=== PATIENT | male | born 1945 | race Caucasian/White ===

== ENCOUNTER 2019-12-15 17:31 | Inpatient (IN) | payer MEDICARE, BC ==
[~2019-12-15] VITALS: Ht 185.4 cm; Wt 95.3 kg
--- NOTE | ~2019-12-15 | HEMODYNAMI ---
PATIENT:VARSHA HERNANDEZ MEDICAL RECORD: [id number] : 45 LOCATION:[facility] D.2117 ADMISSION DATE: 12/15/19 Generatedon:12/16/201911:15 Patient name: VARSHA HERNANDEZ Patient #: [id number] SSN: [id number] : 1945 Date of study: 12/16/2019 Page: Of Hemodynamic Procedure Report Patient Data Patient Demographics Procedure consent was obtained First Name: VARSHA Gender: Male Last Name: MARY : 1945 Patient #: [id number] Age: 74 year(s) Race: Unknown SSN: [id number] Additional ID: [id number] Contact details [address]: [address] [place] [address] State: [place] City: [place] Zip code: [address] Past Medical History Allergies: No known allergies Admission Admission Data Admission Date: 12/15/2019 Admission Time: 18:35 Arrival Date: 12/16/2019 Arrival Time: 0:00 Admit Source: Other Insurance Payor: Medicare Room #: D.2117 [facility] #: [id number] Height (in.): 71.65 BSA: 2.16 (m2) Height (cm.): 182 BMI: 28.68 (kg/m2) Weight (lbs.): 209.44 Weight (kg.): 95 Lab Results Lab Result Date: 12/16/2019 Lab Result Time: 0:00 Biochemistry Name Units Result Min Max BUN mg/dl 18 --(---*)-- 7 18 Creatinine mg/dl 1.1 --(--*-)-- 0.6 1.3 CBC Name Units Result Min Max Hemoglobin g/dl 14.6 --(-*--)-- 13.5 17.5 Procedure Procedure Types Cath Procedure Diagnostic Procedure LHC LH w/Coronaries FFR/IVUS FFR Initial Sedation Charges Moderate Sedation up to 30 minutes PCI Procedure Hemochron ACT Test Peripheral Cath Diagnostic Procedure Construction Driller Peripheral Procedures Four Vessel Arteriogram Procedure Description Procedure Date Procedure Date: 12/16/2019 Procedure Start Time: 10:48 Procedure End Time: 11:14 Procedure Staff Name Function Stephon Nails MD Performing Physician Carmella Magdaleno RT Monitor Emily Fountain RN Nurse Silvina Guo RT Scrub Indication NSTEMI Procedure Data Cath Procedure Fluoroscopy Diagnostic fluoroscopy Total fluoroscopy Time: 4.2 time: 4.2 min min Diagnostic fluoroscopy Total fluoroscopy dose: 693 dose: 693 mGy mGy Contrast Material Contrast Material Type Amount (ml) Isovue 300 86 Entry Location Entry Primary Successful Side Size Upsize Upsize Entry Closure Succes sful Closure Location (Fr) 1 (Fr) 2 (Fr) Remarks Device Remarks Femoral Right 5 Fr 6 Fr Exoseal artery Short Estimated blood loss: 10 ml Diagnostic catheters Device Type Used For End Catheter Placement MULTIPACK JL 4.0 5Fr Procedure catheter MULTIPACK 3DRC 5Fr Procedure catheter MULTIPACK Pigtail 5 Fr Ventriculography catheter Procedure Complications No complications Procedure Medications Medication Administration Route Dosage 0.9% NaCl I.V. 100 ml/hr Oxygen etCO2 Nasal cannula 2 l/min Lidocaine 2% added to field 20 Heparin Flush Bag added to field 2 bags (1000units/500ml NS) Versed I.V. 2 mg Fentanyl I.V. 50 mcg Heparin Bolus I.V. 6000 units Hemodynamics Rest BSA: 2.16 (m2) HGB: 14.6 (g/dl) O2 Consumption: Estimated: 248.97 (ml/min) O2 Co nsumption indexed: Estimated:115.26 (ml/min/m) Heart Rate: 70 (bpm) Pressure Samples Time Site Value (mmHg) Purpose Heart Use Rate(bpm) 10:57 LV 141/10,11 Snapshot 65 10:57 AO 136/91(113) Pullback 67 10:57 LV 111/18,16 Pullback 67 Gradients Valve Time Site 1 Site 2 Mean SEP/DFP Peak To Heart Use (mmHg) (sec/min) Peak Rate (mmHg) (bpm) Aortic 10:57 LV AO 0 67 111/18,16 136/91(113) Calculations Valve P-P Mean Valve Index Valve Source Name Gradient Area Flow (cm2) Aortic 0 0 Snapshots Pre Cath Intra NCS Post Cath Vital Signs Time Heart Resp SPO2 etCO2 NIBP (mmHg) Rhythm Pain Sedation Rate (ipm) (%) (mmHg) Status Level (bpm) 10:40:29 68 15 97 26.2 159/92(112) NSR 0 (11) 10(A) , No pain 10:44:47 67 19 98 12 165/83(100) NSR 0 (11) 10(A) , No pain 10:49:07 64 20 96 13.5 168/83(105) NSR 0 (11) 10(A) , No pain 10:53:28 64 12 96 28.5 148/80(121) NSR 0 (11) 10(A) , No pain 10:57:41 59 13 96 27 147/93(113) NSR 0 (11) 10(A) , No pain 11:01:56 65 11 95 22.5 142/91(111) NSR 0 (11) 10(A) , No pain 11:06:11 66 13 95 26.3 150/80(102) NSR 0 (11) 10(A) , No pain 11:11:02 63 12 96 16.5 144/87(106) NSR 0 (11) 10(A) , No pain Medications Time Medication Route Dose Verified Delivered Reason Notes Effectiveness by by 10:32:42 0.9% NaCl I.V. 100 Stephon Emiyl used for ml/hr St Toney Fountain procedure RN 10:32:51 Oxygen etCO2 2 Stephon Emily used for Nasal l/min [facility] Toney Fountain procedure cannula MD HANSEN 10:32:57 Lidocaine 2% added 20ml Stephon Szymanski for local to vial [facility] anesthetic field MD FREEMAN 10:33:00 Heparin Flush added 2 Stephon Stephon used for Bag to bags [facility] procedure (1000units/500ml field MD FREEMAN NS) 10:48:25 Versed I.V. 2 mg Stephon Pavona for sedation St Toney Fountain MD RN 10:48:33 Fentanyl I.V. 50 Stephon Emily for sedation mcg St Toney Fountain MD RN 11:01:27 Heparin Bolus I.V. 6000 Stephon Emily for verif ied units [facility] anticoagulation with Dr. FREEMAN RN [place] Procedure Log Time Note 10:17:08 Arrival Date: 12/16/2019 12:00:00 AM 10:17:26 Admit Source: Other 10:17:29 Insurance Payor : Medicare 10:17:35 Patient Height : 71.65 inches 10:17:39 Patient Weight : 209.44 lbs 10:18:09 Lab Result : BUN 18 mg/dl 10:18:09 Lab Result : Hemoglobin 14.6 g/dl 10:18:09 Lab Result : Creatinine 1.1 mg/dl 10:18:15 Diagnostic Cath Status : Elective 10:18:49 Procedure Status Urgent Heart Cath (IP). 10:18:52 Silvina Guo RT(R) (CV) sent for patient. Start room use. 10:18:53 Time tracking: Regular hours (M-F 7:00 - 5:00) 10:18:59 Plan of Care:Hemodynamics will remain stable., Cardiac rhythm will remain stable., Comfort level will be maintained., Respiratory function will remain adequate., Patient/ family verbilizes understanding of procedure., Procedure tolerated without complication., Recovers from procedure without complications.. 10:19:53 H&P Date Dictated: 01/31/2020 Within 30 days and on chart., H&P Addendum completed by physician on day of procedure. (MUST COMPLETE FOR ALL OUTPATIENTS). 10:19:54 Pre-procedure instructions explained to patient. 10:19:57 Family in patients room. 10:19:59 Patient NPO since Midnight. 10:20:09 Patient allergic to No known allergies 10:20:12 Is the patient allergic to Iodine/contrast media? No. 10:20:13 Was the patient premedicated? Yes 10:20:31 Is patient on blood thinner?No 10:21:20 Indication : NSTEMI 10:25:40 Snore? Yes 10:25:42 Sleep apnea? Yes 10:26:00 Airway obstruction? Yes COPD 10:26:03 Dentures? No ? 10:26:08 Patient pain scale 0/10 ?. 10:26:18 IV patent on arrival in left forearm with 0.9% NaCl at [facility]. 10:26:24 Lab results completed and on chart. 10:26:30 Stress Test: no; N/A ? 10:32:28 Informed consent obtained and on chart 10:32:33 Vital chart was started 10:32:42 0.9% NaCl 100 ml/hr I.V. was administered by Emily Fountain RN; used for procedure; Verbal order read back and verified. 10:32:51 Oxygen 2 l/min etCO2 Nasal cannula was administered by Emily Fountain RN; used for procedure; Verbal order read back and verified. 10:32:57 Lidocaine 2% 20ml vial added to field was administered by Stephon Nails MD; for local anesthetic; Verbal order read back and verified. 10:33:00 Heparin Flush Bag (1000units/500ml NS) 2 bags added to field was administered by Stephon Nails MD; used for procedure; Verbal order read back and verified. 10:41:07 Right groin area was prepped with chlora-prep and draped in sterile fashion 10:41:11 Alarms reviewed by R. N. 10:41:12 Sharps counted by scrub and verified by R.N. 10:41:27 Patient received from Med II to CCL 2 Alert and oriented. Tansferred to table in Supine position. 10:41:28 Warm blankets applied, and tierra hugger turned on for patient comfort. 10:41:29 Correct patient and procedure confirmed by team. 10:41:30 Baseline sample Acquired. 10:41:30 ECG and BP/O2 sat monitors applied to patient. 10:41:33 Full Disclosure recording started 10:41:42 Patient diabetic? No. 10:47:01 Physician arrived 10:47:02 --------ALL STOP TIME OUT------ 10:47:02 Final Timeout: patient, procedure, and site verified with staff and physician. All members of the team are in agreement. 10:47:05 Right groin site verified by team. 10:47:10 Fire Safety Assessment: A--An alcohol-based skin anteseptic being used preoperatively., C--Open oxygen or nitrous oxide is being used., D--An ESU, laser, or fiber-optic light is being used. 10:47:16 Physical assessment completed. ASA score P 2 - A patient with mild systemic disease as per Stephon Naisl MD. 10:47:20 2) 60-89 Mildly reduced kidney function, and other findings (as for stage 1) point to kidney disease. 10:47:27 Maximum allowable contrast dose (3.7 X eGFR X 0.75)191 ml. 10:47:32 Sedation plan: IV Moderate Sedation Medication:Versed, Fentanyl 10:47:38 Use device set Femoral Dx 10:47:41 Procedure started. 10:47:58 ACIST Syringe (94252) opened to sterile field. 10:47:59 Bag Decanter (2001S) opened to sterile field. 10:47:59 Medline Cath Pack ([id number]) opened to sterile field. 10:48:01 ACIST Hand Control (83805) opened to sterile field. 10:48:01 ACIST Manifold (88607) opened to sterile field. 10:48:04 DIAGNOSTIC Multipack 5Fr catheter set (CS0656) opened to sterile field. 10:48:15 SHEATH 5FR [place] (MJX219) opened to sterile field. 10:48:16 EMERALD Guide Wire (539-197) opened to sterile field. 10:48:25 Versed 2 mg I.V. was administered by Emily Fountain RN; for sedation; Verbal order read back and verified. 10:48:33 Fentanyl 50 mcg I.V. was administered by Emily Fountain RN; for sedation; Verbal order read back and verified. 10:48:35 Local anesthetic to right femoral artery with Lidocaine 2% by Stephon Nails MD.INITIAL ACCESS ONLY 10:49:01 A 5 Fr sheath was inserted into the Right Femoral artery 10:49:07 Tegaderm 4 x 4 (1626W) opened to sterile field. 10:49:15 A MULTIPACK JL 4.0 5Fr catheter was advanced over the wire and used for Procedure. 10:49:17 LCA angiography performed. 10:52:25 Catheter removed. 10:52:32 A MULTIPACK 3DRC 5Fr catheter was advanced over the wire and used for Procedure. 10:52:36 RCA angiography performed. 10:54:24 Right carotid angiography performed. 10:54:25 Left carotid angiography performed. 10:56:10 Catheter removed. 10:56:19 A MULTIPACK Pigtail 5 Fr catheter was advanced over the wire and used for Ventriculography. 10:56:44 Zero performed for pressure channel P1 10:57:52 EF : 55 % 10:57:58 Catheter removed. 10:59:12 SHEATH 6FR [place] (QWW748) opened to sterile field. 10:59:24 Proceeding to intervention. 10:59:46 [place] Verrata Plus pressure wire (84610C) opened to sterile field. 10:59:47 INFLATOR Merit BasixCompak (HO0658) opened to sterile field. 11:00:02 Sheath upsized to a 6 Fr Short. 11:00:57 GUIDE 6FR JL 4.0 catheter ([id number]) opened to sterile field. 11:01:12 6 Fr jl$ guide catheter was inserted over the wire 11:01:27 Heparin Bolus 6000 units I.V. was administered by Emily Fountain RN; for anticoagulation; verified with Dr. Peacock Verbal order read back and verified. 11:04:04 Procedure type changed to Cath procedure, Diagnostic procedure, LHC, LHC w/Coronaries, FFR/IVUS, FFR Initial, Sedation Charges, Moderate Sedation up to 30 minutes, PCI procedure, Hemochron ACT Test, Peripheral Cath Diagnostic Procedure, Construction Driller Peripheral Procedures, Four Vessel Arteriogram 11:06:29 FFR/IFR wire advanced. 11:06:32 Wire advanced across lesion. 11:08:26 mCirc lesion measured at 1.00 with IFR 11:09:49 Catheter removed. 11:10:00 Sheath removed intact; hemostasis achieved with Exoseal to the Right Femoral artery. 11:10:03 Procedure ended.(Physican Out) 11:10:16 Fluoroscopy time 04.20 minutes. 11:10:22 Fluoroscopy dose: 693 mGy 11:10:22 Flurop Dose total: 693 11:10:27 Dose Area Product 60451 mGy/cm. 11:10:32 Contrast amount:Isovue 300 86ml. 11:10:35 Maximum allowable dose exceeded? No. 11:10:37 Sharps counted by scrub and verified by R.N. 11:10:44 Insertion/operative site no bleeding no hematoma. 11:10:49 Post-op/insertion site Right Femoral artery dressed using a 4 x 4 and Tegaderm. 11:10:52 Post Procedure Pulses reassessed and unchanged 11:11:11 Post-procedure physical assessment completed. ASA score P 2 - A patient with mild systemic disease as per Stephon Nails MD. 11:11:14 Post procedure rhythm: unchanged. 11:11:17 Estimated blood loss: 10 ml 11:11:19 Post procedure instruction explained to patient.Patient verbalizes understanding. 11:11:25 ACT drawn and resulted at out of range-Low seconds. (normal therapeutic range 180-240 seconds). 11:12:02 Procedure and supply charges have been captured, reviewed, submitted and are correct. 11:13:41 Procedure Complication : No complications 11:13:43 Vital chart was stopped 11:13:55 [facility] Findings: mild to moderate CAD (<70%) 11:14:00 4Vessel Findings: mild to moderate disease (<70%, see procedure notes) 11:14:09 Operative report dictated upon procedure completion. 11:14:11 See physician's report for complete and final results. 11:14:17 Report given to [facility]. 11:14:22 Patient transfered to [facility] with Bed. 11:14:33 Procedure ended. 11:14:33 Full Disclosure recording stopped 11:14:40 End room use (Document Last) 11:15:17 End room use (Document Last) 11:15:34 End room use (Document Last) Device Usage Item Name Manufacture Quantity Catalog Hospital Part Current Minima l Lot# / Number Charge Number Stock Stock Serial# Code ACIST Acist 1 88004 403542 368718 157586 20 Syringe Medical (92449) Systems Inc Bag Microtek 1 2001S 518810 01797 637323 5 Decanter Medical Inc. () Medline Medline 1 [id number] 574196 77152 026354 5 Cath Pack ([id number]) ACIST Hand Acist 1 70650 672661 791342 301149 5 Control Medical (06931) Systems Inc ACIST Acist 1 96262 605987 572619 762219 5 Manifold Medical (62005) Systems Inc DIAGNOSTIC Cardinal 1 GD3599 230546 06271 072835 30 Multipack Health 5Fr catheter set (IH3350) SHEATH 5FR Terumo 1 RYH499 602027 215543 229775 5 [place] (CJG138) EMERALD Cardinal 1 502-455 227955 147568 900081 5 Guide Wire Health (502-455) Tegaderm 4 3M 1 1626W 383423 169794 849689 5 x 4 (1626W) MULTIPACK Cardinal 1 383914 5 JL 4.0 5Fr Health catheter MULTIPACK Cardinal 1 266793 5 3DRC 5Fr Health catheter MULTIPACK Cardinal 1 127498 5 Pigtail 5 Health Fr catheter SHEATH 6FR Terumo 1 VUM676 779936 508535 322483 40 [place] (YAZ722) Newfane Newfane 1 09258D 542318 565515096 440835 5 Verrata Plus pressure wire (02436R) INFLATOR Merit 1 CC7431 179909 731826 382017 15 Merit Medical BasixCompak (PA3621) GUIDE 6FR Medtronic 1 BA7IG05 071430 43942 881661 1 JL 4.0 catheter (GK4GN83) Signature Audit [place] Stage Time Signature Unsigned Intra-Procedure 12/16/2019 Carmella Magdaleno 11:15:17 AM RT(R) Intra-Procedure 12/16/2019 Emily Fountain 11:15:34 AM RN Intra-Procedure 12/16/2019 Stephon Dwyer 11:15:55 AM Toney FREEMAN Signatures Performing Physician : Signature : Stephon Nails MD Date : Time : Monitor : Carmella Magdaleno Signature : RT Date : Time : Nurse : Emily Fountain RN Signature : Date : Time : [facility] [address] [address]
[2019-12-15] MEDS ORDERED: LISINOPRIL10 MG PO (17:36)
[2019-12-15] MEDS ORDERED: OMEPRAZOLE20 M1 PO (17:37)
[2019-12-15] MEDS ORDERED: MOBIC7.5 MG PO (17:37)
[2019-12-15] MEDS ORDERED: WELLBUTRIN SR150 MG PO (17:37)
[2019-12-15 18:19] VITALS: BP 120/66
[2019-12-15 18:44] LABS: BASOPHILS 0.2 % (0-2); EOSINOPHILS 0.2 % (0-7); HEMATOCRIT 45.6 % (42.0-54.0); HEMOGLOBIN 15.6 g/dL (13.5-17.5); IMMATURE GRANULOCYTES 0.4 % (0-5); LYMPHOCYTES 14.8 % (15-50); MCH 31.9 pg (26.0-34.0); MCHC 34.2 g/dL (31.0-37.0); MCV 93.3 fL (80.0-100.0); NEUTROPHILS 78.4 % (40-80); PLATELET COUNT 86 10x3/uL (130-400); RBC 4.89 10x6/uL (4.20-6.10); RDW 11.8 % (11.5-14.5); WBC 11.7 10x3/uL (4.8-10.8)
[2019-12-15 18:51] LABS: APTT 33.5 SECONDS (22.8-39.4); CALC OSMOLALITY 274 mosm/kg (275-300); CALCIUM 8.9 mg/dL (8.5-10.1); CARBON DIOXIDE 25.7 mmol/L (21.0-32.0); CHLORIDE - SERUM 103 mmol/L (98-107); CREATININE - SERUM 1.2 mg/dL (0.6-1.3); GLUCOSE 146 mg/dL (74-106); INR 1.19 (0.85-1.17); POTASSIUM - SERUM 4.4 mmol/L (3.5-5.1); SODIUM 135 mmol/L (136-145); UREA NITROGEN 18 mg/dL (7-18); eGFR NON AFRICAN AMERICAN 63 mL/min (90-120)
[2019-12-15 19:00] LABS: PLATELET ESTIMATE DECREASED
[2019-12-15 19:11] LABS: ALBUMIN 3.4 g/dL (3.4-5.0); ALKALINE PHOSPHATASE 95 U/L (30-120); ALT (SGPT) 33 U/L (10-68); BILIRUBIN - TOTAL 0.74 mg/dL (0.2-1.3); CKMB 4.9 U/L (0.0-3.6); CREATINE KINASE 196 UL (21-232); MAGNESIUM - SERUM 1.9 mg/dL (1.8-2.4); PROTEIN - SERUM 7.5 g/dL (6.4-8.2)
[2019-12-15 19:27] LABS: TROPONIN-I 0.142 ng/mL (0.000-0.060)
[2019-12-15 19:32] LABS: D-DIMER-QUANTITATIVE > 20.00 ug/mLFEU (0.20-0.54)
--- NOTE | 2019-12-15 20:00 | NUR ---
ADMIT TO ROOM 2116 FROM ER. ALERT/ORIENTED. TELEMETRY STARTED . NO DISTRESS. DENIES CHEST PAIN AT THIS TIME. O2 @ 2L/NC WITH NONLABORED RESPIRATIONS. ADMISSION HISTORY AND ASSESSMENT COMPLETED. PLAN OF CARE REVIEWED AND PT TEACHING DONE ON WHAT TO EXPECT. CALL LIGHT IN REACH.
[2019-12-16] VITALS: BP 118/54
--- NOTE | 2019-12-16 02:28 | NUR ---
ADMISSION ASSESSMENT COMPLETED.
[2019-12-16 04:00] VITALS: BP 127/81
[2019-12-16 06:10] LABS: BASOPHILS 0.3 % (0-2); EOSINOPHILS 2.2 % (0-7); HEMATOCRIT 43.3 % (42.0-54.0); HEMOGLOBIN 14.6 g/dL (13.5-17.5); IMMATURE GRANULOCYTES 0.5 % (0-5); LYMPHOCYTES 28.9 % (15-50); MCH 31.8 pg (26.0-34.0); MCHC 33.7 g/dL (31.0-37.0); MCV 94.3 fL (80.0-100.0); MONOCYTES 8.1 % (2-11); PLATELET COUNT 70 10x3/uL (130-400); RBC 4.59 10x6/uL (4.20-6.10)
[2019-12-16 06:49] LABS: ALBUMIN 3.2 g/dL (3.4-5.0); ALKALINE PHOSPHATASE 84 U/L (30-120); ALT (SGPT) 28 U/L (10-68); BILIRUBIN - TOTAL 0.57 mg/dL (0.2-1.3); CALC OSMOLALITY 280 mosm/kg (275-300); CALCIUM 8.8 mg/dL (8.5-10.1); CARBON DIOXIDE 27.5 mmol/L (21.0-32.0); CHLORIDE - SERUM 105 mmol/L (98-107); CREATINE KINASE 149 UL (21-232); CREATININE - SERUM 1.1 mg/dL (0.6-1.3); GLUCOSE 112 mg/dL (74-106); POTASSIUM - SERUM 4.1 mmol/L (3.5-5.1); PROTEIN - SERUM 6.6 g/dL (6.4-8.2); SODIUM 139 mmol/L (136-145); UREA NITROGEN 18 mg/dL (7-18); eGFR NON AFRICAN AMERICAN 69 mL/min (90-120)
[2019-12-16 06:50] LABS: TROPONIN-I 0.081 ng/mL (0.000-0.060)
--- NOTE | 2019-12-16 07:15 | NUR ---
RECEIVED PT IN BED AAOX4 RESP UNLABORED SKIN W/D COLOR WNL DENIES ANY PAIN OR NEEDS AT THIS TIME
[2019-12-16 08:10] VITALS: BP 150/85
[2019-12-16 08:37] LABS: CHOL - HDL RATIO 5.1 ratio (2.3-4.9); LDL-HDL RATIO 3.2 ratio (1.5-3.5)
--- NOTE | 2019-12-16 10:07 | NUR ---
PT REFUSES SCDs AT THIS TIME
--- NOTE | 2019-12-16 10:30 | NUR ---
PT TO SURVEYOR INSTRUMENT ASSISTANT VIA BED
--- NOTE | 2019-12-16 11:40 | NUR ---
RECEIVED PT BACK TO ROOM VIA BED VSS RESP UNALBORED 02 ON 2LPM NC PPPX4 RT GROIN NOTED WITH DRSG C/D/I WILL CONTINUE TO MONITOR
[2019-12-16 12:41] VITALS: Ht 185.4 cm; Wt 95.3 kg
[2019-12-16 17:41] VITALS: BP 132/72
[2019-12-16 21:47] VITALS: BP 135/76
--- NOTE | 2019-12-16 22:13 | NUR ---
1950 INITIAL ROUNDS COMPLETED. PT RESTING IN BED WITH NO DISTRESS. NONLABORED RESPIRATION ON O2 @ 2L/NC. SR PER TELEMETRY. SALINE LOCK TO LFA. DRESSING TO RIGHT GROIN C/D/I. NO BRUISING OR SWELLING NOTED. PT IN GOOD SPIRITS, WITH PLANNED DISCHARGE FOR TOMORROW. 3832 BEDTIME MED GIVEN. PT RESTING. CPOC.
[2019-12-17 00:30] VITALS: BP 143/85
[2019-12-17 04:00] VITALS: BP 132/84
[2019-12-17 05:32] LABS: BASOPHILS 0.2 % (0-2); EOSINOPHILS 2.4 % (0-7); HEMATOCRIT 41.9 % (42.0-54.0); HEMOGLOBIN 14.2 g/dL (13.5-17.5); IMMATURE GRANULOCYTES 0.5 % (0-5); LYMPHOCYTES 20.6 % (15-50); MCH 31.8 pg (26.0-34.0); MCHC 33.9 g/dL (31.0-37.0); MCV 93.7 fL (80.0-100.0); MEAN PLATELET VOLUME 11.5 fL (7.4-10.4); MONOCYTES 9.7 % (2-11); NEUTROPHILS 66.6 % (40-80); RBC 4.47 10x6/uL (4.20-6.10); RDW 11.9 % (11.5-14.5); WBC 9.5 10x3/uL (4.8-10.8)
[2019-12-17 05:42] LABS: PLATELET COUNT 87 10x3/uL (130-400)
[2019-12-17 05:43] LABS: PLATELET ESTIMATE DECREASED
[2019-12-17 05:50] LABS: ANION GAP 12.9 mmol/L (8-16); CARBON DIOXIDE 25.7 mmol/L (21.0-32.0); CREATININE - SERUM 1.2 mg/dL (0.6-1.3); POTASSIUM - SERUM 4.6 mmol/L (3.5-5.1)
[2019-12-17 08:49] VITALS: BP 148/87
[2019-12-17] MEDS ORDERED: ASPIRIN81 MG PO (10:48)
[2019-12-17] MEDS ORDERED: XARELTO15 MG PO (10:51)
[2019-12-17] MEDS ORDERED: XARELTO20 MG PO (10:52)
--- NOTE | 2019-12-17 11:02 | NUR ---
URINE SPECIMEN COLLECTED AND TAKEN TO LAB. WILL MONITOR.
[2019-12-17 11:04] LABS: BILIRUBIN NEGATIVE (NEGATIVE); GLUCOSE NEGATIVE (NEGATIVE); KETONE NEGATIVE (NEGATIVE); NITRITE NEGATIVE (NEGATIVE); SPECIFIC GRAVITY 1.005 (1.005-1.020); UROBILINOGEN NORMAL (NORMAL)
[2019-12-17 11:10] LABS: WHITE CELLS - URINE 25-50 /hpf (NEGATIVE)
[2019-12-17 11:11] LABS: BACTERIA FEW /hpf (NEGATIVE); EPITHELIAL CELLS 0-5 /hpf (0-5); RED CELLS - URINE 0-5 /hpf (0-5)
--- NOTE | 2019-12-17 11:30 | NUR ---
AMBULATES HALLWAY WITH PT ASSIST.
--- NOTE | 2019-12-17 13:59 | NUR ---
IV AND TELEMTRY DCD. DC PLANS GIVEN. UNDERSTANDING VOICED. ESCORTED TO CAR BY W/C.
--- NOTE | 2019-12-18 07:41 | MORECARE ---
CASE MANAGEMENT DISCHARGE SUMMARY PATIENT: VARSHA HERNANDEZ UNIT: [id number] ADM DATE: 12/15/19 AGE: 74 : 45 SEX: M ROOM/BED: D.2117 AUTHOR: NUPUR FALK PHYSICIAN: REFERRING PHYSICIAN: OLIVA HARMAN MD DATE OF SERVICE: 12/18/19 Discharge Plan Patient Name: VARSHA HERNANDEZ Facility: [facility]:[place] : 1945 Planned Disposition: Home Anticipated Discharge Date: Discharge Date: 12/17/2019 Expected LOS: Initial Reviewer: [email or web address] Initial Review Date: 12/15/2019 Generated: 12/18/19 8:40 am Coverage Notice Reviewer: [email or web address] Michael Turner Notice Issued Date-Time: 12/17/2019 12:00 Notice Type: Patient Choice Letter Notice Delivered To: Patient Relationship to Patient: Supervisor Treating And Pumping Name: Delivery Method: HAND - Hand Delivered Vangie Days: Prior Verbal Notification: Recipient Understood Notice: Yes Recipient Signature: Yes Med Rec Note Co-signed by Attending: Coverage Notice Comment: MERRY SIGNED TO [facility], DECLINED HH Patient Name: VARSHA HERNANDEZ Page [phone] at 0741 All edits/amendments must be made on the electronic document DICTATION DATE: 12/18/19739 YARD CRANE OPERATOR: KEMI 12/18/19 07 RPT#: [id number] DC DATE:12/17/19 STATUS: DIS IN [place] [address] [place] [address] END OF REPORT
--- NOTE | 2019-12-18 07:47 | MORECARE ---
CASE MANAGEMENT DISCHARGE SUMMARY PATIENT: VARSHA HERNANDEZ UNIT: [id number] ADM DATE: 12/15/19 AGE: 74 : 45 SEX: M ROOM/BED: D.9971 AUTHOR: DEYA,DOC PHYSICIAN: REFERRING PHYSICIAN: LOIVA HARMAN MD DATE OF SERVICE: 12/18/19 Discharge Plan Patient Name: VARSHA HERNANDEZ Facility: [facility]:[place] : 1945 Planned Disposition: Home Anticipated Discharge Date: Discharge Date: 12/17/2019 Expected LOS: Initial Reviewer: [email or web address] Initial Review Date: 12/15/2019 Generated: 12/18/19 8:47 am Comments DCP- Discharge Planning Updated by [email or web address]: Eliane Turner on 12/18/19 6:[address] CM met with patient to complete initial dc planning assessment. CM educated patient on the CM role and verbal consent given by patient to complete assessment. CM verified patient's address, phone number, and emergency contact phone numbers. Patient lives at home with his who is at bedside. At discharge patient plans to return home and feels this is a safe discharge. CM discussed availability of home health, rehab services, and medical equipment. Patient states he is independent of his needs, but uses home oxygen at night and as needed. He reports he uses [facility] for his oxygen needs. Patient requests that CM get him portable oxygen. A walk test was performed and patient was 95% on room air and 97% while walking. Patient states he will pay for his own portable oxygen when he gets home. Patient denies other known discharge needs at this time. Transportation provider at discharge will be his . CM will continue to follow and will assist as needed with dc plans/needs. Eliane Turner Coverage Notice Reviewer: [email or web address] - Eliane Turner Notice Issued Date-Time: 12/17/2019 12:00 Notice Type: Patient Choice Letter Notice Delivered To: Patient Relationship to Patient: Deputy Felony Clerk Name: Delivery Method: HAND - Hand Delivered Vangie Days: Prior Verbal Notification: Recipient Understood Notice: Yes Recipient Signature: Yes Med Rec Note Co-signed by Attending: Coverage Notice Comment: MERRY SIGNED TO [facility], DECLINED HH Last DP export: 12/18/19 6:41 a Patient Name: VARSHA HERNANDEZ Page [phone] at 0747 All edits/amendments must be made on the electronic document DICTATION DATE: 12/18/19746 BRAND MARKETING SPECIALIST: KEMI 12/18/19746 RPT#: [id number] DC DATE:12/17/19 STATUS: DIS IN [place] [address] [place] [address] END OF REPORT
--- NOTE | 2019-12-19 14:52 | OP ---
PATIENT NAME: VARSHA HERNANDEZ MEDICAL RECORD: [id number] :[birth year] LOCATION:D.M2 D.2117 ADMISSION DATE:12/15/19 SURGEON: GORDY ESCALONA MD DATE OF OPERATION: 12/16/2019 PROCEDURE: Left heart catheterization, selective coronary angiography, 4-vessel arteriography, IFR wire, right femoral artery approach. CATHETERS: A 5-Namibian sheath, 5/4/ left and right Sterling, 5/4 pig. The procedure was well tolerated. The patient returned to the marie, sheath removed. ExoSeal device placed. FINDINGS: Left ventriculography in 30-degree SCOTT view; normal wall motion, normal systolic function. CORONARY ANATOMY: LEFT MAIN: Left main is free of disease. LAD: Mild luminal irregularities. No flow obstructive disease. CIRCUMFLEX: Has a questionable stenosis in its mid portion; however, IFR wire was not significant. RIGHT CORONARY ARTERY: Free of disease. DESCRIPTION OF PROCEDURE: After intervention of the right coronary, the right diagnostic catheter was withdrawn proximally. First, the right common carotid was selectively engaged. This shows luminal irregularities, but no flow obstructive stenosis. The right internal carotid is widely patent. The right external carotid has luminal irregularities with some calcification, but no flow obstructive stenosis. The catheter was then withdrawn and the left common carotid was selectively engaged, smooth-walled vessel, free of disease. Left internal carotid is smooth-walled vessel, free of disease. Left external carotid shows scattered luminal irregularities throughout with the greatest no greater than 50%. TRANSINT:[id number] Voice Confirmation ID: [id number] DOCUMENT ID: [id number] GORDY ESCALONA MD at 1452 CC: [id number] DICTATION DATE: 12/16/19 1124 TERMITE EXTERMINATOR HELPER: 12/16/19 1436 DIS IN 12/17/19 [facility] [address] [place] [address]
--- NOTE | 2019-12-19 14:52 | CN ---
PATIENT NAME:VARSHA HERNANDEZ MEDICAL RECORD: [id number] : 45 LOCATION:D. D.2117 ADMIT DATE: 12/15/19 ACCOUNT: [id number] CONSULTING PHYSICIAN: GORDY ESCALONA MD REFERRING PHYSICIAN: OLIVA HARMAN MD DATE OF CONSULTATION: 12/16/2019 HISTORY OF PRESENT ILLNESS: A 74-year-old gentleman with no known history of coronary artery disease, has history of severe obstructive pulmonary disease on at bedtime oxygen, symptomology began Monday after pina hogging, began to have chest tightness, pressure, dyspnea more than his baseline also accompanied by some heaviness radiating to the jaw during the same time. He had two syncopal episodes, prodromal with visual changes, felt like shaking went down his eyes, perhaps some dysarthria and these happened on . His troponins are elevated, but trending down at this point consistent with NSTEMI before transfer here. We are asked to see him concerning his cardiovascular status. PAST MEDICAL HISTORY: Includes; 1. History of hypertension. 2. Obstructive pulmonary disease. ALLERGIES: None known. MEDICATIONS: Include lisinopril 10 mg p.o. daily, Mobic 15 mg p.o. daily, Wellbutrin 150 p.o. b.i.d., omeprazole 20 daily. SOCIAL HISTORY: Nonsmoker, nondrinker. He is able to take all his ADLs despite underlying lung issues as well as works some in the yard. REVIEW OF SYSTEMS: The patient reports easy bruising but reports no swollen glands. The patient reports no fever, no night sweats, no significant weight gain, no significant weight loss. No significant exercise tolerance. The patient reports no dry eyes, no irritation, no vision change. Patient reports no difficulty hearing and no ear pain. Patient reports no frequent nose bleeds or nose and sinus problems. Patient reports on arm pain on exertion. No shortness of breath while lying down. No history of heart murmur. Patient reports no cough, no wheezing or coughing up blood. Patient reports no abdominal pain, no vomiting. Normal appetite. No diarrhea and not vomiting blood. No nausea and no constipation. Patient reports no incontinence. No difficulty urinating. No hematuria. No increased frequency. Patient reports no muscle aches. No weakness, no arthralgias, no back pain. No swelling of the extremities. Patient reports no abnormal mole, no jaundice, no rashes. Reports no loss of consciousness. No weakness and no numbness. No seizures, dizziness, or headaches. The patient reports no depression, no sleep disturbance, feeling safe in a relationship and no alcohol abuse. Patient reports on fatigue. Reports no runny nose or sinus pressure. No itching, no hives, and no frequent sneezing. PHYSICAL EXAMINATION: GENERAL: Pleasant gentleman in no acute distress, appears stated age. VITAL SIGNS: Blood pressure 150/85, pulse 63 and regular. HEENT: Normocephalic, atraumatic. NECK: No JVD or bruit. HEART: Regular. A II/ systolic ejection murmur. LUNGS: Prolonged expiratory phase, few expiratory wheezes. CONSULT REPORT [id number] VARSHA HERNANDEZ ABDOMEN: Soft, nontender. EXTREMITIES: Pulses 2+. No edema. IMPRESSION: Transient ischemic attack symptomology with amaurosis fugax, non-ST elevation myocardial infarction, possibly 48 to 72 hours prior to admission, pulmonary embolus. PLAN: We will plan for angiography, 4-vessel arteriography. If intervention needed, we will use a non-medicated stent secondary to need for NOAC as well at this point. Further recommendations based on the above. TRANSINT:[id number] Voice Confirmation ID: [id number] DOCUMENT ID: [id number] GORDY ESCALONA MD at 1452 CC: [id number] DICTATION DATE: 12/16/19 1041 EXERCISE TEACHER: 12/16/19 1232 DIS IN 12/17/19 [place] [id number] [place] [address]
--- NOTE | 2019-12-19 14:52 | EC ---
PATIENT:VARSHA HERNANDEZ DATE OF SERVICE: 12/15/19 SEX: M MEDICAL RECORD: [id number] DATE OF : 45 LOCATION:D.M2 D.211 AGE OF PATIENT: 74 ADMISSION DATE: 12/15/19 REFERRING PHYSICIAN: INTERPRETING PHYSICIAN: GORDY ESCALONA MD ECHOCARDIOGRAM REPORT ECHO CHARGES 4 ECHO COMPLETE Date: 12/16/19 CLINICAL DIAGNOSIS: NSTEMI ECHOCARDIOGRAPHIC MEASUREMENTS (adult normal given) AC root (d.<3.7cm) 2.5 cm LV Septum d (<1.2 cm> 1.1 cm Valve Excursion 1.2 cm LV Septum (systole) 1.2 cm Left Atria (s.<4.0cm> 2.5 cm LVPW d(<1.2cm) 1.0 cm RV (d.<2.3cm) 3.3 cm LVPW (sytole) 1.2 cm LV diastole(<5.6CM) 4.2 cm MV E-F(>70mm/sec) cm LV systole 3.7 cm LVOT Diameter 1.9 cm MV exc.(>10mm) cm Est.ejection fraction (50-75%) % DOPPLER: LVIT cm/sec A 62 cm/sec E 39 cm/sec LA cm/sec RVSP 37.5 mmHg LVOT 82 cm/sec AOP1/2T m/s Asc. Ao 104 cm/sec RVOT 47 cm/sec RA cm/sec PA 51 cm/sec AV Gradient Peak 4.4 mmHg AV Mean 2.3 mmHg AV Area 2.3 cm MV Gradient Peak 2.5 mmHg MV Mean 0.8 mmHg MV Area cm COMMENTS: Paper Machine Tender: Dorothea [facility] Chainstitch Sewing Machine Operator: 3 Dr. Peacock TAPE# PACS Pericardial Effusion N DATE OF SERVICE: Adequate 2D, color flow imaging, spectral Doppler, and M-Mode. No LVH. LV internal dimensions are normal. Wall motion is normal. EF is greater than or equal to 55%. Aortic valve is tricuspid. No evidence of stenosis by Doppler interrogation. Left atrium is normal. Mitral valve shows no prolapse. Trace MR. Right-sided chambers are grossly normal. Trace TR. TRANSINT:[id number] Voice Confirmation ID: [id number] DOCUMENT ID: [id number] ECHOCARDIOGRAM REPORT [id number] VARSHA HERNANDEZ GORDY ESCALONA MD at 1452 CC: [id number] DICTATION DATE: 12/17/19 1230 SUPERVISOR BLOOD DONOR RECRUITERS: 12/17/19 1305 DIS IN 12/17/19 [place] [id number] [place] [id number]
== END 2019-12-17 14:00 | disposition home or self-care (01) | DRG 280 ==
LOC: D.ER 17:31 → D.M2 18:35
PROVIDERS: Family Medicine; Internal Medicine Interventional Cardiology; ADMIT Family Medicine; ATTEND Family Medicine
PROC: B2151ZZ Fluoroscopy of Left Heart using Low Osmolar Contrast (ICD-10-PCS; 2019-12-16)
PROC: 4A023N7 Measurement of Cardiac Sampling and Pressure, Left Heart, Percutaneous Approach (ICD-10-PCS; 2019-12-16)
PROC: B3151ZZ Fluoroscopy of Bilateral Common Carotid Arteries using Low Osmolar Contrast (ICD-10-PCS; 2019-12-16)
PROC: B3181ZZ Fluoroscopy of Bilateral Internal Carotid Arteries using Low Osmolar Contrast (ICD-10-PCS; 2019-12-16)
PROC: B31C1ZZ Fluoroscopy of Bilateral External Carotid Arteries using Low Osmolar Contrast (ICD-10-PCS; 2019-12-16)
PROC: 4A033BC Measurement of Arterial Pressure, Coronary, Percutaneous Approach (ICD-10-PCS; 2019-12-16)
PROC: B2111ZZ Fluoroscopy of Multiple Coronary Arteries using Low Osmolar Contrast (ICD-10-PCS; principal; 2019-12-16 10:20)
DX: I21.4 Non-ST elevation (NSTEMI) myocardial infarction (principal); I26.99 Other pulmonary embolism without acute cor pulmonale; J96.21 Acute and chronic respiratory failure with hypoxia; G45.3 Amaurosis fugax; J44.9 Chronic obstructive pulmonary disease, unspecified; I10 Essential (primary) hypertension